=== PATIENT | male | born 1970 | race Two or more races ===

== ENCOUNTER 2017-10-09 07:59 | Emergency (ER) | payer SELFPAY ==
--- NOTE | 2017-10-09 08:07 | NUR ---
DIONICIO [id number] from [place], pt refused to be triaged and to be seen by ER MD. IV removed. Catheter intact and site benign. Pressure and 4x4 applied to site. No bleeding noted.
[2017-10-09] MEDS ORDERED: HALOPERIDOL LACTATE INJ 5 MG/ML VIAL ONE (17:16)
[2017-10-09] MEDS ORDERED: diphenhydrAMINE HCL 50 MG/ML VIAL ONE (17:16)
[2017-10-09] MEDS ORDERED: LORAZEPAM INJ 2 MG/ML VIAL ONE (17:17)
== END 2017-10-09 08:07 | disposition left against medical advice (07) ==
LOC: ER 08:06
DX: Z00.8 Encounter for other general examination (principal)
CPT/HCPCS: 99283; J1200; J1630; J2060

== ENCOUNTER 2017-10-09 17:14 | Emergency (ER) | payer SELFPAY ==
[~2017-10-09] VITALS: Ht 162.6 cm; Wt 59.0 kg
--- NOTE | 2017-10-09 17:16 | NUR ---
pt kostas to er bed 15, agitation, was found at the back of a store acting bizzare and holding a pipe. possible substance intoxication. agitated. on 4 pt restraints bar captain. placed on monitor. awaitng md dawson.
--- NOTE | 2017-10-09 17:25 | NUR ---
dr staley at bedside for eval.
[2017-10-09] MEDS: diphenhydrAMINE HCL 50 MG/ML VIAL IM ONE ×2 (17:30)
[2017-10-09] MEDS: LORAZEPAM INJ 2 MG/ML VIAL IM ONE (17:30)
--- NOTE | 2017-10-09 17:30 | NUR ---
medicated as ordered.
[2017-10-09 17:56] LABS: EOSINOPHILS # (AUTO) 0.1 /CMM (0.0-0.7); EOSINOPHILS % (AUTO) 3.4 % (0.0-6.0); HEMATOCRIT 35 % (39-51); HEMOGLOBIN 11.5 g/dL (13.5-17.5); LYMPHOCYTES # (AUTO) 1.2 /CMM (0.8-4.8); LYMPHOCYTES % (AUTO) 32.5 % (20.0-44.0); MEAN CORPUSCULAR HEMOGLOBIN 29 PG (26.0-33.0); MEAN CORPUSCULAR HGB CONC 33 g/dl (31.0-36.0); MEAN CORPUSCULAR VOLUME 90 fL (80-96); MONOCYTES # (AUTO) 0.5 /CMM (0.1-1.30); MONOCYTES % (AUTO) 12.1 % (2.0-12.0); NEUTROPHILS # (AUTO) 1.9 /CMM (1.8-8.9); PLATELET COUNT (AUTO) 337 /CMM (150-450); RDW COEFFICIENT OF VARIATION 18.1 (11.5-15.0); RED BLOOD CELL COUNT(AUTO) 3.92 MIL/uL (4.5-6.0); WHITE BLOOD COUNT (AUTO) 3.8 K/uL (4.3-11.0)
--- NOTE | 2017-10-09 18:10 | NUR ---
pt is sleeping. on monitor w/ stable vitals. verbal order for restraint removal carried out. will continue to monitor pt.
[2017-10-09 18:20] LABS: CALCIUM, SERUM 9.5 mg/dL (8.5-10.1); CARBON DIOXIDE 26 mmol/L (21-32); CHLORIDE 102 mmol/L (98-107); CREATININE 0.9 mg/dL (0.6-1.3); GLUCOSE 114 mg/dL (74-106); POTASSIUM 3.5 mmol/L (3.5-5.1); SODIUM SERUM 138 mmol/L (136-145); UREA NITROGEN, BLOOD 19 mg/dL (7-18)
[2017-10-09 18:25] LABS: ALANINE AMINOTRANSFERASE 62 U/L (12-78); ALBUMIN 3.6 g/dL (3.4-5.0); ALCOHOL, BLOOD < 3 mg/dL (0-0); ALKALINE PHOSPHATASE 154 U/L (46-116); ASPARTATE AMINOTRANSFERASE 86 U/L (15-37); BILIRUBIN,DIRECT 0.1 mg/dL (0.0-0.2); BILIRUBIN,TOTAL 0.5 mg/dL (0.2-1.0); TOTAL PROTEIN, SERUM 8.1 g/dL (6.4-8.2)
[2017-10-09 18:27] LABS: ACETAMINOPHEN < 2 ug/ml (10-30); SALICYLATE < 2.8 mg/dL (2.8-20.0)
[2017-10-09 18:55] LABS: APPEARANCE,URINE Clear (CLEAR); BILIRUBIN,URINE Negative (NEGATIVE); BLOOD, URINE Negative Ery/uL (NEGATIVE); COLOR,URINE Yellow (YELLOW); KETONES,URINE Negative (NEGATIVE); LEUKOCYTE ESTERASE ,URINE Negative (NEGATIVE); NITRITE, URINE Negative (NEGATIVE); PH,URINE 5.5 (5.0-8.0); PROTEIN,URINE Negative (NEGATIVE); UGLUCOSE Negative (NEGATIVE); UROBILINOGEN,URINE 0.2 EU/dL (0.2)
--- NOTE | 2017-10-09 23:05 | NUR ---
pt sleeping, on monitor. stable vitals.
--- NOTE | 2017-10-09 23:51 | NUR ---
report to charge nurse angela for [facility].
--- NOTE | 2017-10-10 02:42 | NUR ---
PT SLEEPING COMFORTABLY ON BED. AWAKENS TO NAME. DENIES COMPLAINT AND STATES, "I'M JUST TIRED; I WANT TO GO BACK TO SLEEP." [employer]SC[employer] NAD NOTED. WILL CONT TO MONITOR.
--- NOTE | 2017-10-10 04:30 | NUR ---
IV removed. Catheter intact and site benign. Pressure and 4x4 applied to site. No bleeding noted.
--- NOTE | 2017-10-10 06:51 | NUR ---
PT SLEEPING COMFORTABLY ON BED. AWAKENS TO NAME. AMBULATED TO BATHROOM; GAIT UNSTEADY. PT REQUESTS TO RETURN TO SLEEP. ASSISTED TO BED. GIVEN BLANKET. WILL CONT TO MONITOR.
--- NOTE | 2017-10-10 09:16 | NUR ---
PT AMBULATORY STABLE CONDITION. GIVEN FOOD TRAY .
[2017-10-10 09:19] VITALS: BP 105/78
== END 2017-10-10 09:54 | disposition home or self-care (01) ==
LOC: ER 17:17
DX: F29 Unspecified psychosis not due to a substance or known physiological condition (principal); D64.9 Anemia, unspecified; F11.129 Opioid abuse with intoxication, unspecified; F12.129 Cannabis abuse with intoxication, unspecified; F15.129 Other stimulant abuse with intoxication, unspecified; F19.129 Other psychoactive substance abuse with intoxication, unspecified; D72.819 Decreased white blood cell count, unspecified
CPT/HCPCS: 36415; 80048-TC; 80076-TC; 80305; 81000-TC; 85025-TC; A4606; G0480; Z7610